=== PATIENT | female | born 1990 | race Two or more races ===

== ENCOUNTER 2018-07-08 08:37 | Emergency (ER) | payer OTHER ==
[2018-07-08 09:00] VITALS: BP 128/96; PULSE 70; TEMP 98.2; BMI 22.8
[2018-07-08] MEDS ORDERED: CYCLOBENZAPRINE HCL 10 MG TABLET (FP) PO ONE (09:46)
[2018-07-08] MEDS ORDERED: KETOROLAC TROMETHAMINE 60 MG/2 ML VIAL IM ONE (09:46)
--- NOTE | 2018-07-08 09:46 | PDOC ---
History of Present Illness - General Chief Complaint: Back Pain Stated Complaint: PAIN Time Seen by Provider: 07/08/18 09:07 History Source: Patient Exam Limitations: Language Barrier ([employer] used [id number]) - History of Present Illness Initial Comments: 07/08/18 09:50 Patient is a 28-year-old female with no past medical history who presents to the emergency department for 2 days of neck pain. Patient states that she woke up yesterday with right-sided neck pain. 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 She states that the pain got worse and started radiating down her right arm and up to her head. She states that she took 2 Motrin with no relief of her symptoms. Denies fevers, chills, numbness and tingling down the extremity , weakness of the extremities, lightheadedness and dizziness. Past History - Travel Traveled outside of the country in the last 30 days: No Close contact w/someone who was outside of country & ill: No - Past Medical History Allergies/Adverse Reactions: Allergies Allergy/AdvReac Type Severity Reaction Status Date / Time No Known Allergies Allergy Verified 07/08/18 08:56 Home Medications: Ambulatory Orders Cyclobenzaprine HCl [Flexeril -] 10 mg PO HS #10 tablet 07/08/18 Methylprednisolone [Medrol -] 4 mg PO ASDIR #21 tablet 07/08/18 COPD: No - Immunization History Immunization Up to Date: No - Suicide/Smoking/Psychosocial Hx Smoking History: Never smoked Hx Alcohol Use: No Drug/Substance Use Hx: No Substance Use Type: None Review of Systems - Review of Systems Able to Perform ROS?: Yes Comments:: 07/08/18 09:50 CONSTITUTIONAL: Absent: fever, chills, diaphoresis, generalized weakness, malaise, loss of appetite HEENT: Absent: rhinorrhea, nasal congestion, throat pain, throat swelling, difficulty swallowing, mouth swelling, ear pain, eye pain, visual Changes MUSCULOSKELETAL: Present: neck pain, radiating down the R arm Absent: myalgia, arthralgia, joint swelling SKIN: Absent: rash, itching, pallor NEUROLOGIC: Absent: headache, focal weakness or paresthesias, dizziness, unsteady gait, seizure, mental status changes, bladder or bowel incontinence PSYCHIATRIC: Absent: anxiety, depression, suicidal or homicidal ideation, hallucinations. Is the patient limited Azeri proficient: No *Physical Exam - Vital Signs Last Vital Signs Temp Pulse Resp BP Pulse Ox 98.2 F 70 16 128/96 98 07/08/18 08:57 07/08/18 08:57 07/08/18 08:57 07/08/18 08:57 07/08/18 08:57 - Physical Exam Comments: 07/08/18 09:50 GENERAL: Well developed, well nourished. Awake and alert. No acute distress. HEENT: Normocephalic, atraumatic. PERRLA, EOMI. No conjunctival pallor. Sclera are non- icteric. Moist mucous membranes. Oropharynx is clear. NECK: Supple. Decreased ROM d/t pain. Palpable muscle spasm to the R paraspinous muscles. No midline tenderness. No JVD. Carotid pulses 2+ and symmetric, without bruits. No thyromegaly. No lymphadenopathy. MUSCULOSKELETAL TTP of the R trapezius muscles, with palpable spasm. Normal range of motion at all joints except the neck, see above. No bony deformities or tenderness. No CVA tenderness. EXTREMITIES: No cyanosis. No clubbing. No edema. No calf tenderness. SKIN: Warm and dry. Normal capillary refill. No rashes. No jaundice. NEUROLOGICAL: Alert, awake, appropriate. Cranial nerves 2-12 intact. No deficits to light touch and temperature in face, upper extremities and lower extremities. No motor deficits in the in face, upper extremities and lower extremities. Normoreflexic in the upper and lower extremities. Normal speech. Toes are down- going bilaterally. Gait is normal without ataxia. PSYCHIATRIC: Cooperative. Good eye contact. Appropriate mood and affect. Medical Decision Making - Medical Decision Making 07/08/18 09:56 Patient is a 28-year-old female no past medical history who presents emergency department today for right-sided neck pain radiating to her right arm for 2 days. -Pt with TTP of the R paraspinous muscles of the neck and R trapezius, with palpable knot consistent with muscle spasm. -No trauma, or fever. No saddle anesthesia or bladder/bowel incontinence. No CVA tenderness. -Pt is neurologically intact on exam with no focal findings. -Toradol given with relief of symptoms -DC home. Ortho follow up given for if symptoms do not resolve. -I discussed the physical exam findings, ancillary test results and final diagnoses with the patient. I answered all of the patient's questions. The patient was satisfied with the care received and felt comfortable with the discharge plan and treatment plan. The Patient agrees to follow up with the primary care physician/specialist within 24-72 hours. Return precautions were given. *DC/Admit/Observation/Transfer Diagnosis at time of Disposition: Neck pain - Discharge Dispostion Disposition: HOME Condition at time of disposition: Stable Decision to Admit order: No - Prescriptions Prescriptions: Cyclobenzaprine HCl [Flexeril -] 10 mg PO HS #10 tablet Methylprednisolone [Medrol -] 4 mg PO ASDIR #21 tablet - Referrals Referrals: Brad Sutherland MD [Primary Care Provider] - - Patient Instructions Printed Discharge Instructions: DI for Neck Pain Additional Instructions: You have neck pain due to a muscle spasm. Please take the medrol dose pack as prescribed. You were also prescribed Flexeril. Please take the medication before you go to bed. Do not drive after taking this medication as it may make you sleepy. You may use warm compresses on your back to help with her symptoms. Please follow-up with your primary care doctor. If your symptoms do not resolve in 3-5 days, follow-up with orthopedics. A referral has been provided for you. Return to the emergency department if you have worsening back pain, bladder or bowel incontinence, numbness and tingling in her legs, changes in the way you walk, or any new or worsening symptoms. Tienes dolor de royce debido a un espasmo muscular. Por favor, tome el paquete de dosis de medrol segn lo prescrito. Tambin te recetaron Flexeril. Por favor , tome el medicamento antes de irse a la cama. No maneje despus de seda mariia medicamento, ya que puede causarle sueo. Puede usar compresas tibias en la espalda para ayudar con rey sntomas. Por favor dionne un seguimiento con jose mdico de atencin primaria. Si rey sntomas no se resuelven en 3-5 garcia, dionne un seguimiento con ortopedia. Se guillen proporcionado moon referencia para usted. Regrese a la alicia de emergencias si tiene empeoramiento del dolor de espalda, incontinencia de la vejiga o el intestino, entumecimiento y hormigueo en las piernas, cambios en la forma en que camina, o cualquier sntoma nuevo o que empeora. Print Language: NIGERIAN - Post Discharge Activity Forms/Work/School Notes: Back to Work
[2018-07-08] MEDS ORDERED: KETOROLAC TROMETHAMINE 60 MG/2 ML VIAL ONE (09:50)
[2018-07-08] MEDS ORDERED: CYCLOBENZAPRINE HCL 10 MG TABLET (FP) ONE (09:50)
== END 2018-07-08 10:00 | disposition home or self-care (01) ==
LOC: JERFT 08:37
PROC: 3E0233Z Introduction of Anti-inflammatory into Muscle, Percutaneous Approach (ICD-10-PCS; principal; 2018-07-08)
DX: M62.838 Other muscle spasm (principal)
CPT/HCPCS: 96372; 99281-25

== ENCOUNTER 2018-07-19 14:59 | Emergency (ER) | payer OTHER ==
--- NOTE | 2018-07-19 15:07 | PDOC ---
Rapid Medical Evaluation Chief Complaint: Urinary Problem Time Seen by Provider: 07/19/18 15:07 Medical Evaluation: Allergies Allergy/AdvReac Type Severity Reaction Status Date / Time No Known Allergies Allergy Verified 07/19/18 15:04 07/19/18 15:08 I have performed a brief in-person evaluation of this patient. The patient presents with a chief complaint of: dysuria today. No pmhx Pertinent physical exam findings:stable I have ordered the following:ua/cx The patient will proceed to the ED for further evaluation. Discharge Disposition - Diagnosis Dysuria - Referrals - Patient Instructions - Post Discharge Activity
[2018-07-19 15:08] VITALS: BP 116/70; PULSE 100; TEMP 98.3; BMI 26.5
[2018-07-19 15:49] LABS: URINE APPEARANCE CLEAR; URINE BILIRUBIN NEGATIVE (<2.0 mg/dL); URINE COLOR COLORLESS; URINE GLUCOSE (UA) NEGATIVE (NEGATIVE); URINE KETONE NEGATIVE (NEGATIVE); URINE LEUK ESTERASE 3+ (NEGATIVE); URINE NITRITE NEGATIVE (NEGATIVE); URINE PROTEIN NEGATIVE (NEGATIVE); URINE UROBILINOGEN NEGATIVE mg/dL (0.2-1.0)
[2018-07-19 16:02] LABS: EPI CELLS RARE /HPF (FEW); URINE BACTERIA RARE /hpf (NONE SEEN); URINE MUCUS RARE; YEAST RARE
--- NOTE | 2018-07-19 16:12 | PDOC ---
History of Present Illness - General Chief Complaint: Urinary Problem Stated Complaint: URINARY PROBLEM Time Seen by Provider: 07/19/18 15:07 History Source: Patient Exam Limitations: Language Barrier ([employer] #[id number]) - History of Present Illness Travel History: No Initial Comments: 07/19/18 16:05 HISTORY OF PRESENT ILLNESS: 28-year-old woman who denies medical history presents emergency departments with dysuria, urinary frequency and urinary urgency starting at approximately 10:00 this morning. Patient reports slight pink tinge to her urine on voiding. She denies any vaginal bleeding or discharge. Patient is sexually active with one male partner having unprotected vaginal intercourse. No recent travel or sick contacts. PAST MEDICAL HISTORY: Denies past medical history SURGICAL HISTORY: Denies ALLERGIES: No known drug allergies REVIEW OF SYSTEMS General/Constitutional: Denies fever or chills. Denies weakness, weight change. HEENT: Denies change in vision. Denies ear pain or discharge. Denies sore throat. Cardiovascular: Denies chest pain or shortness of breath. Respiratory: Denies cough, wheezing, or hemoptysis. Gastrointestinal: Denies nausea, vomiting, diarrhea or constipation. Denies rectal bleeding. Genitourinary: +dysuria, frequency, and urgency Musculoskeletal: Denies joint or muscle swelling or pain. Denies neck or back pain. Skin and breasts: Denies rash or easy bruising. Neurologic: Denies headache, vertigo, loss of consciousness, or loss of sensation. Psychiatric: Denies depression or anxiety. Endocrine: Denies increased thirst. Denies abnormal weight change. Hematologic/Lymphatic: Denies anemia, easy bleeding, or history of blood clots. Allergic/Immunologic: Denies hives or skin allergy. Denies latex allergy. PHYSICAL EXAM General Appearance: Well-appearing, appropriately dressed. No apparent distress , no intoxication. HEENT: EOMI, PERRLA, normal ENT inspection, normal voice, TMs normal, pharynx normal. No conjunctival pallor. No photophobia, scleral icterus. Respiratory/Chest: Lungs CTAB. No shortness of breath, chest tenderness, respiratory distress, accessory muscle use. No crackles, rales, rhonchi, stridor , wheezing, dullness Cardiovascular: RRR. S1, S2. No JVD, murmur, bradycardia, tachycardia. Gastrointestinal/Abdominal: Normal bowel sounds. Abdomen soft, non-distended. Suprapubic tenderness. No rebound tenderness. No organomegaly, pulsatile mass, guarding, hernia, hepatomegaly, splenomegaly. No CVAT. Past History - Past Medical History Allergies/Adverse Reactions: Allergies Allergy/AdvReac Type Severity Reaction Status Date / Time No Known Allergies Allergy Verified 07/19/18 15:04 Home Medications: Ambulatory Orders Cephalexin Monohydrate [Keflex -] 500 mg PO BID #20 capsule 07/19/18 COPD: No - Immunization History Immunization Up to Date: No - Suicide/Smoking/Psychosocial Hx Smoking History: Never smoked Hx Alcohol Use: No Drug/Substance Use Hx: No Substance Use Type: None *Physical Exam - Vital Signs Last Vital Signs Temp Pulse Resp BP Pulse Ox 98.3 F 100 H 18 116/70 99 07/19/18 15:04 07/19/18 15:04 07/19/18 15:04 07/19/18 15:04 07/19/18 15:04 Moderate Sedation - Procedure Monitoring Vital Signs: Procedure Monitoring Vital Signs Temperature 98.3 F 07/19/18 15:04 Pulse Rate 100 H 07/19/18 15:04 Respiratory Rate 18 07/19/18 15:04 Blood Pressure 116/70 07/19/18 15:04 O2 Sat by Pulse Oximetry (%) 99 07/19/18 15:04 ED Treatment Course - ADDITIONAL ORDERS Additional order review: Laboratory Results 07/19/18 15:13 Urine Color Colorless Urine Appearance Clear Urine pH 7.0 D Ur Specific [place] 1.006 L Urine Protein Negative Urine Glucose (UA) Negative Urine Ketones Negative Urine Blood 3+ H Urine Nitrite Negative Urine Bilirubin Negative Urine Urobilinogen Negative Ur Leukocyte Esterase 3+ H D Medical Decision Making - Medical Decision Making 07/19/18 16:07 A/P: 28-year-old woman with dysuria, frequency and urinary urgency No CVA tenderness Suprapubic tenderness Urinalysis results reveal 3+ leukoesterase and 3+ blood. Symptoms are consistent with a cystitis. I will discharge the patient home with prescription for Keflex. I discussed the physical exam findings, ancillary test results and final diagnoses with the patient. I answered all of the patient's questions. The patient was satisfied with the care received and felt comfortable with the discharge plan and treatment plan. The patient will call their primary care physician within 24 hours to arrange follow-up and will return to the Emergency Department with any new, persistent or worsening symptoms. 07/19/18 16:13 *DC/Admit/Observation/Transfer Diagnosis at time of Disposition: Cystitis - Discharge Dispostion Disposition: HOME Condition at time of disposition: Stable Decision to Admit order: No - Prescriptions Prescriptions: Cephalexin Monohydrate [Keflex -] 500 mg PO BID #20 capsule - Referrals Referrals: Razia Nelson MD [Primary Care Provider] - - Patient Instructions Additional Instructions: Rest, drink lots of fluids: Teas, water, soups Avoid contact with others until fevers and symptoms resolved Lots of handwashing and good hygiene Continue [id number] medications for symptomatic relief Tylenol or Motrin for fever and pain Continue all of antibiotics until completed Followup with private physician in one week for repeat urinalysis/reevaluation Return to emergency department for worsened symptoms, fevers, dehydration Desctrever koch muchos lquidos: Ts, jackie, vidhya. Evite el contacto con los dems hasta que la fiebre y los sntomas se resuelvan. Mucho lavado de ele y buena higiene. Continuar con los medicamentos de venta magaly para el alivio sintomtico. Tylenol o Motrin para la fiebre y el dolor. Continuar todos los antibiticos hasta completar Seguimiento con mdico privado en moon semana para repetir el anlisis de orina / reevaluacin Volver al departamento de emergencias para los sntomas empeorados, fiebres, deshidratacin. - Post Discharge Activity
== END 2018-07-19 16:14 | disposition home or self-care (01) ==
LOC: JERFT 14:59
DX: N30.91 Cystitis, unspecified with hematuria (principal)
CPT/HCPCS: 81003; 81015; 87086; 99281-25

== ENCOUNTER 2019-10-19 10:21 | Emergency (ER) | payer OTHER ==
[2019-10-19 10:29] VITALS: BP 128/80; PULSE 77; TEMP 98; BMI 28.1
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
[2019-10-19] MEDS ORDERED: IBUPROFEN 400 MG TABLET (FP) PO ONE ×2 (11:50→11:51)
== END 2019-10-19 11:54 | disposition home or self-care (01) ==
LOC: JERFT 10:21
PROC: 2W3JX1Z Immobilization of Right Finger using Splint (ICD-10-PCS; principal; 2019-10-19)
DX: S62.654A Nondisplaced fracture of middle phalanx of right ring finger, initial encounter for closed fracture (principal); Y04.2XXA Assault by strike against or bumped into by another person, initial encounter; Y93.89 Activity, other specified; Y92.89 Other specified places as the place of occurrence of the external cause
CPT/HCPCS: 29130; 73130-TC-RT-FY; 73140-TC-RT-FY; 99283-25

== ENCOUNTER 2022-07-13 08:23 | Emergency (ER) | payer OTHER ==
[2022-07-13 09:04] VITALS: BP 133/69; PULSE 82; RESP 18; TEMP 98.3; BMI 28.7
[2022-07-13 11:30] LABS: BASO % 0.1 % (0-2.0); EOS % 1.4 % (0-4.5); HEMATOCRIT 41.9 % (32.4-45.2); HEMOGLOBIN 14.2 GM/dL (10.7-15.3); LYMPH % 14.6 % (8-40); MCH 29.7 pg (25.7-33.7); MCHC 33.7 g/dl (32.0-36.0); MEAN PLT VOLUME 8.8 fl (7.5-11.1); MONO % 3.7 % (3.8-10.2); NEUT % 80.2 % (42.8-82.8); PLATELET COUNT 265 10^3/uL (134-434); RBC 4.76 M/mm3 (3.60-5.2); RDW 12.2 % (11.6-15.6); WHITE BLOOD COUNT 9.6 K/mm3 (4.0-10.0)
[2022-07-13 11:32] LABS: EPI CELLS 6 /uL (0-25.1); HYALINE CASTS 0 /uL (0-3.1); URINE APPEARANCE CLEAR; URINE BACTERIA 74 /uL (0-1359); URINE BILIRUBIN NEGATIVE (NEGATIVE); URINE COLOR YELLOW; URINE GLUCOSE (UA) NEGATIVE (NEGATIVE); URINE KETONE NEGATIVE (NEGATIVE); URINE LEUK ESTERASE NEGATIVE (NEGATIVE); URINE NITRITE NEGATIVE (NEGATIVE); URINE PROTEIN NEGATIVE (NEGATIVE); URINE RBC 10 /uL (0-23.9); URINE UROBILINOGEN 0.2 mg/dL (0.2-1.0); URINE WBC 2 /uL (0-25.8)
[2022-07-13 11:34] LABS: INR 0.97 (0.83-1.09); PROTHROMBIN TIME (PATIENT) 11.2 SEC (9.7-13.0)
[2022-07-13 11:37] LABS: ACTIVATED PTT 29.4 SECONDS (25.2-36.5)
[2022-07-13 11:50] LABS: BLOOD UREA NITROGEN 8.1 mg/dL (7-18)
[2022-07-13 11:53] LABS: CREATININE 0.6 mg/dL (0.55-1.3)
[2022-07-13 11:54] LABS: BILIRUBIN,TOTAL 0.4 mg/dL (0.2-1); TOT PROT 7.3 g/dl (6.4-8.2)
== END 2022-07-13 15:15 | disposition home or self-care (01) ==
LOC: JER 08:23
DX: O20.9 Hemorrhage in early pregnancy, unspecified (principal); Z3A.01 Less than 8 weeks gestation of pregnancy
CPT/HCPCS: 36415; 76817-TC; 80053; 81003; 84702; 84703; 85025; 85610; 85730; 86850; 86900; 86901; 87086; 99284-25

== ENCOUNTER 2022-07-15 13:59 | Emergency (ER) | payer OTHER ==
[2022-07-15 14:22] VITALS: BP 125/76; PULSE 97; RESP 18; TEMP 98.8; BMI 28.7
[2022-07-15 16:08] LABS: BASO % 0.2 % (0-2.0); EOS % 1.5 % (0-4.5); HEMATOCRIT 40.1 % (32.4-45.2); HEMOGLOBIN 13.6 GM/dL (10.7-15.3); LYMPH % 23.7 % (8-40); MCH 30.1 pg (25.7-33.7); MEAN CELL VOLUME 88.4 fl (80-96); MEAN PLT VOLUME 8.8 fl (7.5-11.1); NEUT % 69.6 % (42.8-82.8); PLATELET COUNT 263 10^3/uL (134-434); RBC 4.53 M/mm3 (3.60-5.2); RDW 12.2 % (11.6-15.6); WHITE BLOOD COUNT 7.2 K/mm3 (4.0-10.0)
== END 2022-07-15 18:03 | disposition home or self-care (01) ==
LOC: JER 13:59
DX: O03.9 Complete or unspecified spontaneous abortion without complication (principal); Z3A.01 Less than 8 weeks gestation of pregnancy
CPT/HCPCS: 36415; 84702; 85025; 99283-25